=== PATIENT | male | born 1975 | race Caucasian/White ===

== ENCOUNTER 2024-05-17 07:39 | Outpatient (CLI) | payer BC, SELFPAY ==
--- NOTE | 2024-05-17 08:00 | MR_ITS ---
WS: [id number] MRI LUMBAR SPINE WITH CONTRAST TECHNIQUE: Sagittal T1, T2 and STIR imaging. Axial T1 and T2 imaging. Post gadolinium imaging was obt ained. CLINICAL INFORMATION: Z82.49 - Family history of ischemic heart disease and oth... COMPARISON: None. FINDINGS: Mild lumbar curve. No acute compression. No high-grade central canal stenosis. L1-L2: Normal. L2-L3: No significant disc bulging. Mild facet arthropathy. Spinal canal and foramen are patent. L3-L4: No significant disc bulging. Mild facet arthropathy. Spinal canal and foramen are patent. L4-L5: Mild annular bulging with slight effacement of the ventral thecal sac. Mild facet arthropathy. Mild LEFT foraminal narrowing. L5-S1: No significant disc bulging. Mild facet arthropathy. Spinal canal and foramen are patent. Visualized pelvic bony structures: Normal. Paravertebral soft tissues: Normal. MR/MR lumbar spine wo/w con [id number] IMPRESSION: 1. Mild lumbar curve. No acute compression. 2. Slight anterolisthesis L4 on L5 with slight effacement of the ventral theca l sac. 3. Mild LEFT L4-5 foraminal narrowing. 4. Mild facet arthropathy L3-L5. 5. No other acute lumbar spine findings.
--- NOTE | 2024-05-17 08:45 | MR_ITS ---
WS: [id number] MR CERVICAL SPINE WO/W HISTORY: M54.2 - Cervicalgia TECHNIQUE: Sagittal T1, T2 and T2 inversion recovery; axial T2, T2 gradient and fiesta. Post gadolini um imaging with fat saturation technique. FINDINGS:Straightening of the normal cervical lordosis. No high grade central canal narrowing. Cord s ignal is normal. No abnormal gadolinium enhancement. C2-3: Spinal canal and foramen are patent. C3-4: Mild LEFT and no significant RIGHT foraminal narrowing. Mild facet arthropathy. C4-5: Mild facet arthropathy. Mild LEFT foraminal narrowing. Spinal canal and RIGHT foramen are paten t. C5-6: Disc osteophyte complex with endplate ridging. Mild central canal stenosis. Mild LEFT greater t bernstein RIGHT bony foraminal narrowing. Mild facet arthropathy. C6-7: Mild LEFT and no significant RIGHT foraminal narrowing. Spinal canal is patent. C7-T1: Spinal canal and foramen are patent. MR/MR cervical spine wo/w [id number] IMPRESSION: 1. Straightening of the normal cervical lordosis. No high-grade central canal narrowing. Cord signal is normal. 2. Disc osteophyte complex worse at C5-C6 with slight effacement of the ventra l thecal sac. Mild central canal stenosis. Mild LEFT greater than RIGHT bony fo raminal narrowing at this level. 3. Mild LEFT C3-4 and LEFT C4-5 foraminal narrowing. 4. No other acute findings.
[2024-05-17] MEDS: gadobenate dimeglumine 20 mL vial 19 ML IV (10:04)
--- NOTE | 2024-05-17 14:30 | MR_ITS ---
WS: [email or web address] MRA CAROTID WITHOUT AND WITH GADOLINIUM ENHANCEMENT TECHNIQUE: Axial 2-D TOF and gadolinium bolus images obtained with axial images and axial, sagittal, and coronal 2-D reformatted images. CLINICAL INFORMATION: Z82.49 - Family history of ischemic heart disease and oth... COMPARISON: None. FINDINGS: RIGHT:RIGHT common carotid artery is patent. No significant RIGHT ICA stenosis. RIGHT ICA is patent t o the skull base. Tortuous RIGHT ICA at the skull base. LEFT: LEFT common carotid artery is patent. No significant LEFT ICA stenosis. LEFT ICA is patent to t he skull base. Tortuous LEFT ICA at the skull base. RIGHT dominant vertebral artery. Smaller but patent LEFT vertebral artery. Vertebral arteries are pat ent to the basilar junction. Proximal subclavian arteries are patent. Normal branching aortic arch anatomy. MR/MR angio neck w con* [id number] IMPRESSION: 1. No significant cervical ICA stenosis. 2. RIGHT dominant vertebral artery. Smaller but patent LEFT vertebral artery. 3. Proximal subclavian arteries are patent.
== END 2024-05-17 07:40 | disposition home or self-care (01) ==
LOC: RAD 07:40
PROVIDERS: PCP Family Medicine; Visit Provider Psychiatry & Neurology Neurology
DX: M25.78 Osteophyte, vertebrae (principal); M54.2 Cervicalgia; Z82.49 Family history of ischemic heart disease and other diseases of the circulatory system; G44.009 Cluster headache syndrome, unspecified, not intractable
CPT/HCPCS: 70548; 72156; 72158

== ENCOUNTER 2024-05-18 09:47 | Outpatient (CLI) | payer BC, SELFPAY ==
--- NOTE | 2024-05-18 10:00 | MR_ITS ---
WS: [email or web address] MRI HEAD WITH CONTRAST TECHNIQUE: Sagittal T1, T2 axial, T2 axial FLAIR, axial susceptibility weighted imaging, axial diffus ion weighted images, and coronal T2 images were obtained. Pre and post-T1 axial and post T1 coronal i mages. ADC and FSPGR images. CLINICAL INFORMATION: G44.009 - Cluster headache syndrome, unspecified, not int... COMPARISON: None. FINDINGS: No evidence of restricted diffusion to suggest acute ischemia. No suspicious intracranial signal abnormalities. Normal nelson-white differentiation. Normal posterior fossa. Normal vascular flow voids at the skull base. No extra-axial fluid collections. No evidence of mass or mass effect. Paranasal sinuses and mastoid air cells are well aerated. Normal posterior nasopharynx. No hemosiderin on the susceptibility weighted images. Normal optic chiasm and pituitary infundibulum. Temporal lobes and hippocampal formations are normal in appearance. No abnormal gadolinium enhancement. Normal dural venous sinuses. MR/MR head wo/w con [id number] IMPRESSION: 1. No evidence of restricted diffusion to suggest acute ischemia. 2. No suspicious intracranial signal abnormalities. 3. No abnormal intracranial enhancement.
--- NOTE | 2024-05-18 10:45 | MR_ITS ---
WS: [email or web address] MRA HEAD TECHNIQUE: Axial 3-D TOF images obtained with axial images and axial, sagittal, and coronal 2-D refor matted images. CLINICAL INFORMATION: Z82.49 - Family history of ischemic heart disease and oth... COMPARISON: None. FINDINGS: Dominant distal RIGHT vertebral artery. Basilar artery is patent. Normal vascularity to the [employer] john tory bilaterally. Both ICAs are patent at the skull base. Normal vascularity to the RAHEL and MCA territories bilaterally . No evidence of high-grade proximal stenosis or aneurysm. MR/MR angio head con [id number] IMPRESSION: Unremarkable intracranial MRA.
== END 2024-05-18 09:48 | disposition home or self-care (01) ==
LOC: RAD 09:48
PROVIDERS: PCP Family Medicine; Visit Provider Psychiatry & Neurology Neurology
DX: G44.009 Cluster headache syndrome, unspecified, not intractable (principal); Z82.49 Family history of ischemic heart disease and other diseases of the circulatory system
CPT/HCPCS: 70544; 70553; A9577

== ENCOUNTER → 2024-05-25 15:45 | Outpatient (BNVA) | payer BC, SELFPAY | PROVIDERS: PCP Family Medicine; Visit Provider Orthopaedic Surgery | DX: M54.2 Cervicalgia (principal); M54.9 Dorsalgia, unspecified | CPT/HCPCS: 72050; 72110 ==